=== PATIENT | female | born 1950 | race Caucasian/White ===

== ENCOUNTER 2023-04-07 17:02 | Emergency (ER) | payer MEDICARE, SELFPAY ==
[2023-04-07 17:03] VITALS: BP 110/81; PULSE 95; RESP 18; TEMP 36.4; O2SAT 99; BMI 21.8
--- NOTE | 2023-04-07 17:24 | EKG12_ITS ---
Test Reason : CP Blood Pressure : / mmHG Vent. Rate : 131 BPM Atrial Rate : 000 BPM P-R Int : 000 ms QRS Dur : 082 ms QT Int : 318 ms P-R-T Axes : 000 051 079 degrees QTc Int : 469 ms Atrial fibrillation with rapid ventricular response Nonspecific T wave abnormality Abnormal ECG Confirmed by ZOILA TENA, MANISH ([id number]), newspaper or periodical editor SANDY AMATO ([id number]) on 04/10/2023 1:11:46 PM Referred By: KINGS/LIVE/AZIZA Confirmed By:MANISH CUMMINGS MD
--- NOTE | 2023-04-07 17:27 | ED.VIS.CHEST ---
HPI History of Present Illness Chief Complaint: Chest Pain Informant: patient Narrative Narrative: Patient presents with intermittent episodes of heart racing and near syncope associate with left-sided chest pain. She states this has been ongoing since last fall. She had 2 episodes today where she felt as if she may pass out. Patient is found to be in A-fib RVR. She denies known history of atrial fibrillation. [facility] Medical History Depression High cholesterol Hx of gastroesophageal reflux (GERD) Hypertension Hypothyroidism Home Medications amlodipine 10 mg tablet 10 mg PO DAILY 04/07/23 [History Last Taken Unknown] apixaban 5 mg (74 tabs) tablets in a dose pack ([employer] DVT-PE Treat 30D Start) 5 mg PO BID #74 tabs 04/07/23 [Rx Last Taken Unknown] atorvastatin 20 mg tablet 20 mg PO DAILY 04/07/23 [History Last Taken Unknown] baclofen 10 mg tablet 10 mg PO QHS 04/07/23 [History Last Taken Unknown] dicyclomine 20 mg tablet 20 mg PO 4X/DAY irritable bowels 04/07/23 [History Last Taken Unknown] diltiazem HCl 30 mg tablet (Cardizem) 30 mg PO Q6H #60 tabs 04/07/23 [Rx Last Taken Unknown] donepezil 10 mg tablet 10 mg PO DAILY 04/07/23 [History Last Taken Unknown] escitalopram oxalate 20 mg tablet 20 mg PO DAILY 04/07/23 [History Last Taken Unknown] levothyroxine 137 mcg tablet (Euthyrox) 137 mcg PO DAILY 04/07/23 [History Last Taken Unknown] pantoprazole 40 mg tablet,delayed release 40 mg PO DAILY 04/07/23 [History Last Taken Unknown] venlafaxine 37.5 mg capsule,extended release 24 hr 37.5 mg PO BID 04/07/23 [History Last Taken Unknown] Allergy/AdvReac Type Severity Reaction Status Date / Time No Known Allergies Allergy Verified 04/07/23 17:04 Social History Smoking Status: Current every day smoker tobacco type: cigarettes ROS ROS ED Constitutional Constitutional ED: Denies chills or fever(s) Eyes Eyes: Denies change in vision or discharge from eye(s) ENT ENT ED: Denies discharge from eye(s), rhinorrhea or sore throat Cardiovascular Cardiovascular: Reports chest pain and palpitations Respiratory/Chest Respiratory/Chest: Denies cough or dyspnea Gastrointestinal Gastrointestinal: Denies abdominal pain, diarrhea, nausea or vomiting Genitourinary Genitourinary ED: Denies difficulty urinating Musculoskeletal Musculoskeletal: Denies back pain or extremity pain Integumentary Denies Abrasions or rash Neurologic Neurologic: Denies headache(s) or weakness Psychiatric Psychiatric: Denies anxiety or depression Allergic/Immunologic Allergic/Immunologic ED: Denies lip swelling or urticaria EXAM Physical Exam Const Vital Signs: 04/07/23 17:03 04/07/23 17:02 04/07/23 17:55 Temperature 97.5 F L Temperature Source Temporal Pulse Rate 95 128 H Respiratory Rate 18 Respiratory Effort Normal Non-Labored Blood Pressure 110/81 H Blood Pressure Mean 90 Pulse Ox 99 Oxygen Delivery Method Room Air 04/07/23 18:00 04/07/23 18:17 Temperature Temperature Source Pulse Rate 99 101 H Respiratory Rate 19 H Respiratory Effort Blood Pressure 127/74 H Blood Pressure Mean 91 Pulse Ox 96 Oxygen Delivery Method Room Air Positive well nourished and well developed General Appearance ED: well developed HEENT Reports normocephalic and head/scalp atraumatic Eyes PERRL and EOMs intact bilaterally Neck supple Chest Wall inspection of chest normal and palpation of chest normal Resp normal respiratory effort and clear to auscultation bilaterally Cardio Rate: tachycardic Rhythm: abnormal rhythm irregularly irregular GI normal to inspection, nondistended, normoactive bowel sounds Palpation: soft Extremity normal to inspection Neuro oriented x3 and no sensory deficits noted Sensorium / Orientation: alert Motor Exam: strength 5/5 throughout Psych mental status grossly normal Skin no rashes or lesions noted Heart Score History: Slightly/Non-Suspicious ECG: Normal Age: >/= 65 years Risk Factors: 1 or 2 Risk Factors Troponin: </= Normal Limit Score: 3 MDM MDM MDM Narrative Medical decision making narrative: Patient placed on cardiac/vascular sonographer. EKG obtained to evaluate for cardiac arrhythmia/ischemia. Labwork obtained to evaluate for leukocytosis, anemia, and electrolyte derangement. Chest x-ray obtained to evaluate for acute lung pathology, cardiac size, or mediastinal abnormality. Patient found to be in A-fib RVR on monitor. 10 mg of IV Cardizem ordered. She is also given a dose of Lovenox. History & Record Review Discussion w/independent historian: Patient and Family Lab Data Attestation: I reviewed the patient's lab results. Labs: Laboratory Results - last 24 hr 04/07/23 17:12 WBC 13.1 H RBC 4.87 Hgb 14.7 Hct 44.6 MCV 91.6 MCH 30.2 MCHC 33.0 RDW Std Deviation 41.8 RDW Coeff of Wanda 12.5 Plt Count 413 MPV 10.6 Immature Gran % (Auto) 0.500 Neut % (Auto) 66.1 Lymph % (Auto) 20.5 [place] % (Auto) 10.4 H Eos % (Auto) 1.8 Baso % (Auto) 0.7 Absolute Neuts (auto) 8.7 H Absolute Lymphs (auto) 2.68 Nucleated RBC % 0 Sodium 137 Potassium 4.5 Chloride 106 Carbon Dioxide 26.0 Anion Gap 5 BUN 30 H Creatinine 1.29 H Estim Creat Clear Calc 33.04 Est GFR (MDRD) Af Amer 52 L Est GFR (MDRD) Non-Af 43 L BUN/Creatinine Ratio 23.3 H Glucose 89 Calcium 8.8 Troponin I High Sens 21 B-Natriuretic Peptide 260.7 H TSH 0.97 Radiography Chest X-Ray - ED: 1 View, Read by ED Physician, Chronic Changes and No Infiltrates Diagnostic Testing: Clinical Impression(s) from Imaging Studies Chest X-Ray 04/07/23 17:38 IMPRESSION: No radiographic evidence of acute cardiopulmonary disease. Electronically Signed: Tai Real MD at 18:01 EDT , EKG Initial EKG: Attestation: I personally reviewed and interpreted this EKG as follows: Interpretation: Atrial Fibrillation (A-fib RVR with ventricular rate of 131.) Treatment and Re-Evaluation :: CBC was a white count of 13.1 with normal differential. Hemoglobin is 14.7. Chemistry studies reveal a BUN of 30 and a creatinine 1.29. BNP is 260. Troponin is normal at 21. TSH is 0.97. Portable chest x-ray per my interpretation reveals chronic changes with no focal infiltrate. Radiology interpretation is reviewed and agrees. After patient receives IV Cardizem, heart rate is in the 90s. She remains in atrial fibrillation. I did recommend hospitalization as this is new onset A-fib with near syncope. Patient is very adamant that she does not want to stay in the hospital and will sign out AGAINST MEDICAL ADVICE. She thinks that she will be able to follow-up with her field marketing specialist next week. At this time I will have her stop her amlodipine, and place her on oral diltiazem. I will also write her prescription for Eliquis. Return instructions given. Discharge Plan Triage Chief Complaint: Chest Pain ED Provider: Ana Vera Dx/Rx/DC Orders Clinical Impression: Near syncope, New onset a-fib, Chest pain, Atrial fibrillation with RVR Instructions: ED AFIB Prescriptions: New Eliquis DVT-PE Treat 30D Start 5 mg (74 tabs) tablets,dose pack 5 mg PO BID Qty: 74 0RF diltiazem HCl [Cardizem] 30 mg tablet 30 mg PO Q6H Qty: 60 0RF No Action baclofen 10 mg tablet 10 mg PO QHS pantoprazole 40 mg tablet,delayed release (DR/EC) 40 mg PO DAILY levothyroxine [Euthyrox] 137 mcg tablet 137 mcg PO DAILY venlafaxine 37.5 mg capsule,extended release 24hr 37.5 mg PO BID amlodipine 10 mg tablet 10 mg PO DAILY escitalopram oxalate 20 mg tablet 20 mg PO DAILY donepezil 10 mg tablet 10 mg PO DAILY dicyclomine 20 mg tablet 20 mg PO 4X/DAY atorvastatin 20 mg tablet 20 mg PO DAILY Primary Care Provider: Talisha Hoover Referrals: Talisha Hoover, [Primary Care Provider] - Activity Restrictions/Additional Instructions: Please stop taking your amlodipine (Norvasc). Instead you will be taking Cardizem 4 times a day. You have also been given Eliquis as your blood thinner. Please see your field marketing specialist within the next 2 weeks. Disposition Disposition: Against Medical Advice
--- NOTE | 2023-04-07 17:38 | RAD_ITS ---
EXAM: XR CHEST, 1 VIEW CLINICAL INDICATION: cp TECHNIQUE: Frontal view of the chest. COMPARISON: No relevant prior studies available. FINDINGS: LUNGS AND PLEURAL SPACES: Unremarkable. No consolidation or edema. No pneumothorax. No effusion. HEART: Unremarkable. Cardiac silhouette not enlarged. MEDIASTINUM: Central airways and mediastinal contour are unremarkable. BONES/JOINTS: Unremarkable. SOFT TISSUES: Unremarkable. RAD/Chest 1 View (Portable) IMPRESSION: No radiographic evidence of acute cardiopulmonary disease. Electronically Signed: Tai Real MD at 18:01 EDT ,
[2023-04-07 17:39] LABS: Absolute Lymphocyte Count 2.68 X10^3/uL (0.83-4.51); Absolute Neutrophil Count 8.7 X10^3/uL (2.0-7.7); Basophil# 0.09 X10^3/uL; Basophil% 0.7 % (0-1); Eosinophil# 0.24 X10^3/uL; Eosinophils% 1.8 % (0-5); Hematocrit 44.6 % (37-47); Hemoglobin 14.7 g/dL (12.0-15.0); Lymphocyte # 2.68 X10^3/ul (0.83-4.51); Lymphocyte % 20.5 % (19-41); Mean Corpuscular Hgb 30.2 pg (27.0-32.0); Mean Corpuscular Volume 91.6 fL (81-99); Mean Platelet Vol. 10.6 fl (6.2-12.0); Monocyte# 1.36 X10^3/uL; Monocyte% 10.4 % (0-10); NRBC Flagged by Analyzer 0 % (0-5); Neutrophil # 8.65 X10^3/uL (2.7-7.7); Neutrophil % 66.1 % (47-70); Platelet Count 413 K/mm3 (150-450); RBC Distribution Width CV 12.5 % (11.6-14.6); RBC Distribution Width SD 41.8 fl (35.1-43.9); Red Blood Count 4.87 M/mm3 (4.2-5.4); White Blood Count 13.1 K/mm3 (4.4-11.0)
[2023-04-07] MEDS: 0.9% Normal Saline 1,000 ML 150 ML IV (17:54)
[2023-04-07 17:55] VITALS: PULSE 128
[2023-04-07] MEDS: Enoxaparin 60 MG/0.6 ML Syringe SC (17:56)
[2023-04-07] MEDS: dilTIAZem 25 MG/5 ML Vial 10 MG IV BOLUS (17:58)
[2023-04-07 18:00] VITALS: PULSE 99
[2023-04-07 18:09] LABS: BNP,B-Type NATRIURETIC PEPTIDE 260.7 pg/mL (0-100)
[2023-04-07 18:10] LABS: Anion Gap 5 (5-15); BUN 30 mg/dL (7-18); BUN/Creat Ratio 23.3 RATIO (10-20); Calcium,Total 8.8 mg/dL (8.5-10.1); Chloride 106 mmol/L (98-107); Creatinine, Serum 1.29 mg/dL (0.55-1.02); EST Glomerular Filtration Rate 43 mL/min (>60); Est Glom Filt Rate - Afr Amer 52 mL/min (>60); Estimated Creatinine Clearance 33.04 ml/min; Glucose 89 mg/dL (74-106); Potassium 4.5 mmol/L (3.5-5.1); Sodium Level 137 mmol/L (136-145); Thyroid Stim Hormone (TSH) 0.97 uIU/mL (0.358-3.74); Troponin-I HS (w/2H Reflex) 21 pg/mL (3.0-54.0)
[2023-04-07 18:17] VITALS: BP 127/74; PULSE 101; RESP 19; O2SAT 96
[2023-04-07 19:05] VITALS: BP 130/80; PULSE 108; RESP 15; O2SAT 99
--- NOTE | 2023-04-07 19:31 | ED.RN ---
lots of eduction provided to pt and [id number], all questions answered.
[2023-04-07 19:34] LABS: Reflex Troponin-HS? (from REC) Y
== END 2023-04-07 19:32 | disposition left against medical advice (07) ==
PROVIDERS: Emergency Provider Emergency Medicine; PCP Internal Medicine; Visit Provider Emergency Medicine
DX: R07.9 Chest pain, unspecified (principal); I48.91 Unspecified atrial fibrillation; I10 Essential (primary) hypertension; F17.210 Nicotine dependence, cigarettes, uncomplicated; E78.00 Pure hypercholesterolemia, unspecified; Z79.899 Other long term (current) drug therapy; E03.9 Hypothyroidism, unspecified; K21.9 Gastro-esophageal reflux disease without esophagitis; F32.A Depression, unspecified; R55 Syncope and collapse
CPT/HCPCS: 71045; 80048; 83880; 84443; 84484; 85025; 93005; 96361; 96374; 96375; 99284; J7030; A4216

== ENCOUNTER → 2023-05-26 | Outpatient (CLI) | payer MEDICARE, SELFPAY ==
--- NOTE | 2023-05-26 14:49 | ECHOD_ITS ---
Version 2 Reason For Study: AFIB Procedure This was a 2D Doppler, Color Flow transthoracic echocardiogram. Exam performed in department. Left Ventricle Normal LV size. Mild concentric left ventricular hypertrophy. Left ventricular systolic function is normal. The estimated ejection fraction is 55 %. No regional wall motion abnormalities noted. Right Ventricle Normal RV size. Normal systolic function. Tricuspid Valve Normal tricuspid valve. Mild to moderate (1-2+) tricuspid valve insufficiency. Pulmonary artery systolic pressure is 40 mmHg. Aortic Valve Normal aortic valve. Trisinus/trileaflet aortic valve. Mild (1+) aortic valve insufficiency. Pulmonic Valve Normal pulmonic valve. Great Vessels Normal aortic root. The pulmonary artery is normal size. Normal inferior vena cava. Pericardium/Pleural No pericardial effusion. MMode/2D Measurements & Calculations LVIDd: 4.7 cm IVSd: 1.3 cm Ao root diam: 3.0 cm LVIDs: 3.8 cm LVPWd: 1.3 cm RVDd: 3.2 cm FS: 19.2 % LAV(MOD-bp): 78.0 ml SV(MOD-sp4): 47.4 ml LVAd ap4: 28.8 cm2 LAV(MOD-bp) Indexed: 47.7 ml/m2 LVLd ap4: 7.6 cm LAV(MOD-sp2): 66.6 ml EDV(MOD-sp4): 90.6 ml LAV(MOD-sp4): 83.2 ml EDV(sp4-el): 93.2 ml LVAs ap4: 17.5 cm2 LVLs ap4: 6.0 cm ESV(MOD-sp4): 43.2 ml ESV(sp4-el): 43.3 ml EF(MOD-sp4): 52.3 % EF(sp4-el): 53.5 % SV(sp4-el): 49.8 ml LA dimension(2D): 4.1 cm LA A4 area: 26.8 cm2 TAPSE: 3.2 cm RA A4 area: 19.0 cm2 Time Measurements MV dec time: 0.32 sec Doppler Measurements & Calculations MV E max paulino: 54.4 cm/sec Lat Peak E' Paulino: 6.5 cm/sec Med Peak E' Paulino: 7.1 cm/sec MV A max paulino: 42.0 cm/sec E/E' lat: 8.4 E/E' med: 7.7 MV E/A: 1.3 MV V2 max: 66.6 cm/sec Ao V2 max: 124.5 cm/sec MV max P.8 mmHg MV dec slope: 169.2 cm/sec2 Ao max P.2 mmHg MV V2 mean: 40.4 cm/sec Ao V2 mean: 80.0 cm/sec MV mean P.74 mmHg Ao mean P.0 mmHg MV V2 VTI: 24.2 cm Ao V2 VTI: 29.3 cm AV (velocity ratio): 0.87 AI max paulino: 479.6 cm/sec LV V1 max: 104.2 cm/sec PA V2 max: 65.5 cm/sec AI max P.0 mmHg LV V1 max P.3 mmHg PA V2 mean: 40.7 cm/sec AI dec slope: 233.5 cm/sec2 LV V1 mean P.1 mmHg AI P1/2t: 601.7 msec LV V1 mean: 67.9 cm/sec LV V1 VTI: 25.5 cm TR max paulino: 297.3 cm/sec TR max P.3 mmHg ECHO/Echo Complete Interpretation Summary Normal LV size. Left ventricular systolic function is normal. The estimated ejection fraction is 55 %. Mild (1+) aortic valve insufficiency. Pulmonary artery systolic pressure is 40 mmHg. Mild concentric left ventricular hypertrophy. Ordering Physician: Karthikeyan Gaitan Referring Physician: Karthikeyan Gaitan Performed By: Stephanie Pedraza RCS
== END | disposition home or self-care (01) ==
PROVIDERS: PCP Internal Medicine; Referring Provider Internal Medicine Cardiovascular Disease; Visit Provider Internal Medicine Cardiovascular Disease
DX: I48.91 Unspecified atrial fibrillation (principal); R94.31 Abnormal electrocardiogram [ECG] [EKG]
CPT/HCPCS: 93306

== ENCOUNTER → 2024-06-12 | Outpatient (CLI) | payer MEDICARE, SELFPAY ==
[2024-06-12 13:47] LABS: Hematocrit 42.8 % (37-47); Hemoglobin 13.3 g/dL (12.0-15.0); Mean Corp Hgb Conc 31.1 g/dL (32-36); Mean Corpuscular Volume 86.8 fL (81-99); Mean Platelet Vol. 10.3 fl (6.2-12.0); Platelet Count 397 K/mm3 (150-450); RBC Distribution Width CV 15.7 % (11.6-14.6); Red Blood Count 4.93 M/mm3 (4.2-5.4); White Blood Count 11.3 K/mm3 (4.4-11.0)
[2024-06-12 14:17] LABS: ALB/GLOB Ratio 1.2 RATIO (0.9-2.4); AST(SGOT) 20 U/L (15-37); Alanine Aminotransfer ALT/SGPT 46 U/L (13-56); Albumin, Serum 3.6 g/dL (3.2-5.0); Alkaline Phosphatase 91 U/L (45-117); Anion Gap 9 (5-15); BUN 25 mg/dL (7-18); Calcium,Total 9.1 mg/dL (8.5-10.1); Chloride 104 mmol/L (98-107); Creatinine, Serum 1.04 mg/dL (0.55-1.02); EST Glomerular Filtration Rate 55 mL/min (>60); Est Glom Filt Rate - Afr Amer 66 mL/min (>60); Globulin 3.1 g/dL (2.2-4.2); Glucose 73 mg/dL (74-106); Potassium 3.3 mmol/L (3.5-5.1); Protein, Total 6.7 g/dL (6.4-8.2); Sodium Level 139 mmol/L (136-145)
== END | disposition home or self-care (01) ==
LOC: LAB 12:43
PROVIDERS: PCP Internal Medicine; Referring Provider Internal Medicine Cardiovascular Disease; Visit Provider Internal Medicine Cardiovascular Disease
DX: I48.0 Paroxysmal atrial fibrillation (principal)
CPT/HCPCS: 36415; 80053; 85027

== ENCOUNTER → 2024-07-01 | Outpatient (CLI) | payer MEDICARE, SELFPAY ==
[2024-07-01 12:02] LABS: Anion Gap 6 (5-15); BUN 27 mg/dL (7-18); BUN/Creat Ratio 24.8 RATIO (10-20); Calcium,Total 8.8 mg/dL (8.5-10.1); Chloride 108 mmol/L (98-107); Creatinine, Serum 1.09 mg/dL (0.55-1.02); EST Glomerular Filtration Rate 52 mL/min (>60); Est Glom Filt Rate - Afr Amer 63 mL/min (>60); Glucose 139 mg/dL (74-106); Potassium 4.7 mmol/L (3.5-5.1); Sodium Level 141 mmol/L (136-145)
== END | disposition home or self-care (01) ==
LOC: LAB 10:55
PROVIDERS: PCP Internal Medicine; Referring Provider Internal Medicine Cardiovascular Disease; Visit Provider Internal Medicine Cardiovascular Disease
DX: N18.32 Chronic kidney disease, stage 3b (principal)
CPT/HCPCS: 36415; 80048

== ENCOUNTER → 2024-07-17 | Outpatient (CLI) | payer MEDICARE, SELFPAY ==
[2024-07-17 13:26] LABS: Amphetamine Urine VISTA NEGATIVE (<1000 ng/mL); Barbiturate Urine VISTA NEGATIVE (< 200 ng/mL); Benzodiazepine Urine VISTA POSITIVE (< 200 ng/mL); Cocaine Urine VISTA NEGATIVE (< 300 ng/mL); Ecstacy Urine VISTA POSITIVE (< 500 ng/mL); Methadone Urine VISTA NEGATIVE (< 300 ng/mL); PCP Urine VISTA NEGATIVE (< 25 ng/mL); THC Urine VISTA NEGATIVE (< 50 ng/mL); Vista UDS pH Range 4
== END | disposition home or self-care (01) ==
LOC: RAD 12:26
PROVIDERS: PCP Internal Medicine; Referring Provider Anesthesiology Pain Medicine; Visit Provider Anesthesiology Pain Medicine
DX: F11.20 Opioid dependence, uncomplicated (principal); M51.369 Other intervertebral disc degeneration, lumbar region without mention of lumbar back pain or lower extremity pain; M51.34 Other intervertebral disc degeneration, thoracic region
CPT/HCPCS: 72072; 72100; 80307

== ENCOUNTER → 2024-11-21 | Outpatient (CLI) | payer MEDICARE, SELFPAY ==
--- NOTE | 2024-11-21 16:15 | RAD_ITS ---
PROCEDURE: THORACIC SPINE 3 VIEWS (RADSPT), 11/21/2024 REASON FOR EXAM: THORACIC RADICULOPATHY TECHNIQUE: AP, lateral, and swimmer's views of the thoracic spine were obtained. COMPARISON: 07/17/2024 FINDINGS: Suboptimal depiction of the upper thoracic spine on the lateral views despite the swimmer's view due to superimposition of the shoulders. Note also marked demineralization limits fine bony detail. Fracture/dislocation: None visible. Vertebral body heights: Preserved. Alignment: Similar mild cervicothoracic S shaped scoliosis. Disc spaces: Similar variable disc height loss up to at least moderate within the mid to upper thoracic spine. Facets: Grossly unremarkable.. Soft tissues: Atherosclerosis. Granuloma in the RIGHT lung.. Foreign bodies: None visible. Bone mineralization: Marked demineralization. Other: None. RAD/Thoracic Spine 3 Views IMPRESSION: 1. Marked demineralization without visible acute displaced fracture. 2. Multilevel spondylosis and additional description as above. MRI could furth er delineate as indicated. Reading Location: [id number]
== END | disposition home or self-care (01) ==
LOC: RAD 16:10
PROVIDERS: PCP Family Medicine; Referring Provider Anesthesiology Pain Medicine; Visit Provider Anesthesiology Pain Medicine
DX: M54.14 Radiculopathy, thoracic region (principal)
CPT/HCPCS: 72072

== ENCOUNTER → 2025-01-02 | Outpatient (CLI) | payer MEDICARE, SELFPAY ==
[2025-01-02 16:17] LABS: Thyroid Stim Hormone (TSH) 0.788 uIU/mL (0.300-4.200)
== END | disposition home or self-care (01) ==
LOC: LAB 14:14
PROVIDERS: PCP Family Medicine; Referring Provider Internal Medicine Cardiovascular Disease; Visit Provider Internal Medicine Cardiovascular Disease
DX: I48.0 Paroxysmal atrial fibrillation (principal)
CPT/HCPCS: 36415; 84443

== ENCOUNTER → 2025-01-23 | Outpatient (CLI) | payer MEDICARE, SELFPAY ==
--- NOTE | 2025-01-23 15:08 | RAD_ITS ---
PROCEDURE: CERV SPINE 2 OR 3 VIEWS 01/23/2025 REASON FOR EXAM: SPONDYLOSIS TECHNIQUE: 3 views of the cervical spine. COMPARISON: None available FINDINGS: Cervical spine is visualized on the lateral view from the skull base to the top of T1. No fracture. No prevertebral soft tissue swelling. Mild retrolisthesis of C5 in relation to C4 and C6. C5-6 moderate disc space narrowing with degenerative endplate and uncovertebral hypertrophic change. Asymmetric multilevel left sided mid to lower cervical hypertrophic facet degenerative changes noted. Visualized apices appear clear. RAD/Cerv Spine 2 or 3 Views IMPRESSION: Spondylosis/discogenic change and spondylolisthesis as above. Reading Location: [id number]
--- NOTE | 2025-01-23 15:08 | RAD_ITS ---
PROCEDURE: SHOULDER MIN 2 VIEWS 01/23/2025 REASON FOR EXAM: PAIN TECHNIQUE: Four views of the right shoulder. COMPARISON: None RAD/Shoulder min 2 Views IMPRESSION: No acute fracture or dislocations. Minimal degenerative changes of the right s houlder. No acute soft tissue abnormalities. Visualized portions of the right lungs are clear. Reading Location: [id number]
== END | disposition home or self-care (01) ==
LOC: RAD 15:04
PROVIDERS: PCP Family Medicine; Referring Provider Anesthesiology Pain Medicine; Visit Provider Anesthesiology Pain Medicine
DX: M47.812 Spondylosis without myelopathy or radiculopathy, cervical region (principal)
CPT/HCPCS: 72040; 73030

== ENCOUNTER → 2025-03-10 | Outpatient (CLI) | payer MEDICARE, SELFPAY ==
[2025-03-10 14:01] LABS: Anion Gap 11 (5-15); BUN 18 mg/dL (4-19); BUN/Creat Ratio 18.1 RATIO (10-20); Calcium,Total 9.1 mg/dL (7.6-11.0); Carbon Dioxide 25.6 mmol/L (21.0-32.0); Chloride 102 mmol/L (98-108); Glucose 98 mg/dL (70-99); Potassium 4.3 mmol/L (3.3-5.1)
== END | disposition home or self-care (01) ==
LOC: LAB 12:39
PROVIDERS: PCP Family Medicine; Referring Provider Student in an Organized Health Care Education/Training Program; Visit Provider Student in an Organized Health Care Education/Training Program
DX: I10 Essential (primary) hypertension (principal)
CPT/HCPCS: 36415; 80048

== ENCOUNTER → 2025-03-25 | Outpatient (CLI) | payer MEDICARE, SELFPAY ==
[2025-03-25 13:34] LABS: Anion Gap 11 (5-15); BUN 35 mg/dL (4-19); BUN/Creat Ratio 30.5 RATIO (10-20); Calcium,Total 9.3 mg/dL (7.6-11.0); Carbon Dioxide 24.0 mmol/L (21.0-32.0); Chloride 103 mmol/L (98-108); Glucose 94 mg/dL (70-99); Potassium 4.8 mmol/L (3.3-5.1)
== END | disposition home or self-care (01) ==
LOC: LAB 12:43
PROVIDERS: PCP Family Medicine; Referring Provider Student in an Organized Health Care Education/Training Program; Visit Provider Student in an Organized Health Care Education/Training Program
DX: N18.32 Chronic kidney disease, stage 3b (principal)
CPT/HCPCS: 36415; 80048

== ENCOUNTER → 2025-06-26 | Outpatient (CLI) | payer MEDICARE, SELFPAY ==
--- NOTE | 2025-06-26 13:59 | MRI_ITS ---
PROCEDURE: UPPER EXT JOINT ONLY(ROUTINE) 06/26/2025 REASON FOR EXAM: EVAL CUFF TECHNIQUE: Procedure Code: [id number] Modality: MR Procedure: UPPER EXT JOINT ONLY(ROUTINE) T1, T2, PD, multiplanar and multisequence images were obtained of the left shoulder without IV contrast administration. COMPARISON: COMPARISON: None FINDINGS: Bone Marrow: There is no bony contusion or occult fracture. AC joint: The AC joint is widened 0.8 cm with no subluxation, type 2 separation. There is a type 3 acromion with impingement configuration. Rotator cuff: There is moderate supraspinatus muscular atrophy. There is a full-thickness, 50% width tear of the anterior supraspinatus footplate with no significant retraction. There is moderate distal infraspinatus tendinopathy without full-thickness tear. The subscapularis and teres minor appear intact. Biceps tendon: The biceps tendon is present in the biceps tendon groove, with intact anchors. Effusion: There is a small joint effusion. There is fluid in the subacromial subdeltoid bursa, with bursitis. Labrum: There is a tear of the labrum from the 10 o'clock 12 o'clock position. There is thickening of the inferior glenohumeral ligament, which can indicate adhesive capsulitis. Cartilage: There is moderate chondromalacia of the glenohumeral articulation. MRI/Upper Ext Joint Only(Routine) IMPRESSION: The AC joint is widened 0.8 cm with no subluxation, type 2 separation. There is a type 3 acromion with impingement configuration. There is a full-thickness, 50% width tear of the anterior supraspinatus footpla te with no significant retraction. There is moderate distal infraspinatus tendinopathy without full-thickness tear . There is a small joint effusion. There is fluid in the subacromial subdeltoid bursa, with bursitis. There is a small joint effusion. There is fluid in the subacromial subdeltoid bursa, with bursitis. There is a tear of the labrum from the 10 o'clock 12 o'clock position. There is thickening of the inferior glenohumeral ligament, which can indicate a dhesive capsulitis. There is moderate chondromalacia of the glenohumeral articulation. Reading Location: [id number]
== END | disposition home or self-care (01) ==
LOC: MRI 13:55
PROVIDERS: PCP Family Medicine; Referring Provider Orthopaedic Surgery Sports Medicine; Visit Provider Orthopaedic Surgery Sports Medicine
DX: M25.512 Pain in left shoulder (principal)
CPT/HCPCS: 73221